=== PATIENT | female | born 1985 | race Caucasian/White ===

== ENCOUNTER → 2021-08-30 09:32 | Outpatient (CLI) | payer BC, SELFPAY ==
[2021-08-30 18:22] LABS: Add Manual Diff / Slide Review NO; Basophils Absolute Auto 0 /uL (0-100); Basophils Percent Auto 0.6 % (0-2); Eosinophils Absolute Auto 0 /uL (0-450); Eosinophils Percent Auto 0.8 % (2-4); Hematocrit 35.2 % (36-46); Hemoglobin 11.6 g/dL (12.0-16.0); Lymphocytes Absolute Auto 1400 /uL (1100-4500); Mean Corpuscular Hemoglobin 26.3 PG (26-34); Mean Corpuscular Volume 79.8 fL (80-100); Monocytes Absolute Auto 300 /uL (0-900); Monocytes Percent Auto 6.5 % (3-14); Neutrophils Absolute Auto 2900 /uL (1500-7000); Neutrophils Percent Auto 63.1 % (50-75); Platelet Count 173 X10^3/uL (150-400); Red Blood Cell Count 4.41 X10^6/uL (4.0-5.2); Red Cell Distribution Width 13.6 % (11.6-14.8); White Blood Cell Count 4.7 X10^3/uL (4.5-11.0)
[2021-08-30 18:36] LABS: Vitamin D 25 Hydroxy (D3) 41.5 ng/mL (30.0-100.0)
[2021-09-01 15:27] LABS: Calcium 8.9 mg/dL (8.7-10.2); Parathyroid Hormone, Intact 85 pg/mL (15-65)
== END ==
PROVIDERS: PCP Physician Assistant; Visit Provider Physician Assistant Medical
DX: E21.3 Hyperparathyroidism, unspecified (principal); R79.89 Other specified abnormal findings of blood chemistry
CPT/HCPCS: 82306; 82310; 83970; 85025

== ENCOUNTER → 2022-04-03 10:31 | Outpatient (CLI) | payer OTHER, SELFPAY ==
[2022-04-03 19:18] LABS: Add Manual Diff / Slide Review NO; Basophils Absolute Auto 0 /uL (0-100); Basophils Percent Auto 0.7 % (0-2); Eosinophils Absolute Auto 0 /uL (0-450); Eosinophils Percent Auto 0.4 % (2-4); Hematocrit 36.7 % (36-46); Hemoglobin 11.9 g/dL (12.0-16.0); Lymphocytes Absolute Auto 1400 /uL (1100-4500); Lymphocytes Percent Auto 20.7 % (25-40); Mean Corpuscular HGB Conc 32.4 % (30-36); Mean Corpuscular Hemoglobin 25.8 PG (26-34); Mean Corpuscular Volume 79.7 fL (80-100); Monocytes Absolute Auto 300 /uL (0-900); Monocytes Percent Auto 5.1 % (3-14); Neutrophils Absolute Auto 5000 /uL (1500-7000); Neutrophils Percent Auto 73.1 % (50-75); Platelet Count 185 X10^3/uL (150-400); Red Blood Cell Count 4.61 X10^6/uL (4.0-5.2); Red Cell Distribution Width 13.8 % (11.6-14.8); White Blood Cell Count 6.8 X10^3/uL (4.5-11.0)
[2022-04-03 19:34] LABS: Alanine Aminotransferase 32 IU/L (<35); Albumin 4.1 g/dL (3.5-5.0); Albumin Globulin Ratio 1.6 (1.0-2.8); Alkaline Phosphatase 79 U/L (38-126); Aspartate Aminotransferase 28 IU/L (14-36); BUN Creatinine Ratio 14.8 (6-22); Bilirubin Total 0.3 mg/dL (0.2-1.3); Blood Urea Nitrogen 9 mg/dL (7-17); Calcium 8.9 mg/dL (8.4-10.2); Carbon Dioxide 25 mmol/L (22-32); Chloride 103 mmol/L (98-107); Cholesterol 172 mg/dL (140-199); Estimated Glomerular Filt Rate > 60 mL/min (>60); Globulin 2.5 g/dL (1.7-4.1); Glucose 83 mg/dL (70-100); HDL Cholesterol 37 mg/dL (40-60); HEMOLYSIS < 15 (0-50); LDL Cholesterol Calculated 119 mg/dL (<100); Sodium 138 mmol/L (137-145); Total Protein 6.6 g/dL (6.3-8.2); Triglycerides 80 mg/dL (35-150)
[2022-04-03 20:02] LABS: TSH w/ Reflex to FT4 1.18 uIU/mL (0.47-4.68)
[2022-04-06 09:15] LABS: Calcium 8.9 mg/dL (8.7-10.2); Parathyroid Hormone, Intact 89 pg/mL (15-65)
== END ==
PROVIDERS: PCP Physician Assistant Medical; Visit Provider Physician Assistant Medical
DX: E03.9 Hypothyroidism, unspecified (principal); E05.90 Thyrotoxicosis, unspecified without thyrotoxic crisis or storm; E21.3 Hyperparathyroidism, unspecified; F90.9 Attention-deficit hyperactivity disorder, unspecified type; I10 Essential (primary) hypertension; R79.89 Other specified abnormal findings of blood chemistry; Z13.220 Encounter for screening for lipoid disorders
CPT/HCPCS: 80053; 80061; 82310; 83970; 84443; 85025

== ENCOUNTER → 2022-06-12 10:33 | Outpatient (CLI) | payer OTHER, SELFPAY ==
--- NOTE | 2022-06-12 10:34 | DI.MG.S_ITS ---
BILATERAL DIGITAL DIAGNOSTIC MAMMOGRAM 3D/2D: 06/12/2022 CLINICAL: Baseline exam. Right breast lump. No prior exams were available for comparison. Both breasts are heterogeneously dense, which may obscure small masses (category c / 51-75% glandular tissue). There is a linear, fibrous, possible asymmetry in the right breast at 5 o'clock middle depth. This is not seen as a discrete structure in additional views but correlates with the palpable area. No other significant masses, calcifications, or other findings are seen in either breast. IMPRESSION: INCOMPLETE: NEEDS ADDITIONAL IMAGING EVALUATION The possible asymmetry in the right breast most likely is fibroglandular tissue or fibrocystic change but remains indeterminate. Ultrasound is recommended for full evaluation of this area. This was performed immediately following this exam. Mammograms are otherwise normal. Based on the Tyrer Cuzick model (a risk assessment model) the patient's lifetime risk is 12.0% and her 10 year risk is 1.0%. According to the ACR, ACS, and NCCN guidelines, an annual breast MRI exam along with mammogram is recommended if the patient's lifetime risk is 20% or greater. This exam was interpreted at Station ID: [id number]. NOTE: For mammograms, a report in lay terms will be sent to the patient. Approximately 15% of breast malignancies will not be visualized mammographically. In the management of a palpable breast mass, a negative mammogram must not discourage biopsy of a clinically suspicious lesion. Electronically Signed By: Maranda preciado/:06/12/2022 12:46:40 ACR BI-RADS Category 0: Incomplete [id number]
--- NOTE | 2022-06-12 10:34 | DI.US.S_ITS ---
PROCEDURE: US PELVIC COMPLETE INDICATIONS: left sided pelvic pain TECHNIQUE: Real-time scanning was performed of the pelvic organs, with image documentation. Additional endovaginal scanning was necessary due to incomplete visualization of the adnexal and endometrial structures by transabdominal scanning. COMPARISON: None. FINDINGS: Uterus: Uterus is anteverted and normal in size at 7.7 x 3.7 x 4.0 cm. The myometrium is heterogeneous. The endometrium measures 2 mm combined thickness. Ovaries: The right ovary measures 3.3 x 2.0 x 2.8 cm, with a calculated ovarian volume of 9.6 cc. The left ovary measures 2.8 x 2.0 x 2.4 cm, with a calculated ovarian volume of 7.0 cc. The ovaries have a normal sonographic appearance. Less than 12 follicles can be seen in each ovary. No adnexal masses are seen. Other: No pathologic free abdominal or pelvic fluid. IMPRESSION: Unremarkable pelvic ultrasound. We strive to produce accurate, complete, and clear reports of imaging services. To assist us in improving patient care, this report was composed using standard report templates and voice recognition software. Therefore, it may contain abnormal punctuation, insertions and/or omissions. Occasional wrong-word or sound-alike substitutions may occur. Though we review the report and make efforts to correct it, we do recommend that the report be read carefully in proper context to recognize any text inaccuracies. Dictated by: Stefania Mcghee M.D. on 06/12/2022 at 11:56 Approved by: Stefania Mcghee M.D. on 06/12/2022 at 11:58
--- NOTE | 2022-06-12 10:34 | DI.US.S_ITS ---
LIMITED ULTRASOUND OF RIGHT BREAST: 06/12/2022 CLINICAL: Right breast lump. Comparison is made to exam dated: 06/12/2022 mammogram - [facility]. Real-time ultrasound of the right breast 5 o'clock region was performed. Thomas scale images of the real-time examination were reviewed. No significant abnormalities were seen sonographically in the right breast. Specifically, no finding to correspond to the patient's palpable abnormality. IMPRESSION: NEGATIVE There is no sonographic correlate to the patient's palpable abnormality and no evidence of malignancy. A 4 year screening mammogram is recommended. Findings and recommendations were conveyed to the patient at time of exam. This exam was interpreted at Station ID: [id number]. Electronically Signed By: Maranda preciado/:06/12/2022 13:05:19 letter sent: Normal Exam Ultrasound BI-RADS: 1 Negative
== END ==
PROVIDERS: PCP Physician Assistant Medical; Referring Provider Physician Assistant Medical; Visit Provider Physician Assistant Medical
DX: N63.14 Unspecified lump in the right breast, lower inner quadrant (principal); Z12.4 Encounter for screening for malignant neoplasm of cervix; Z80.49 Family history of malignant neoplasm of other genital organs; R92.2 Inconclusive mammogram
CPT/HCPCS: 76642; 76856; 77066; 93976; G0279

== ENCOUNTER → 2022-12-20 09:21 | Outpatient (CLI) | payer OTHER, SELFPAY ==
[2022-12-20 19:56] LABS: Alanine Aminotransferase 20 IU/L (<35); Albumin Globulin Ratio 1.6 (1.0-2.8); Alkaline Phosphatase 62 U/L (38-126); Aspartate Aminotransferase 24 IU/L (14-36); Bilirubin Total 0.4 mg/dL (0.2-1.3); Blood Urea Nitrogen 8 mg/dL (7-17); Calcium 9.1 mg/dL (8.4-10.2); Carbon Dioxide 24 mmol/L (22-32); Chloride 104 mmol/L (98-107); Estimated Glomerular Filt Rate > 60 mL/min (>60); Globulin 2.5 g/dL (1.7-4.1); Glucose 90 mg/dL (70-100); HEMOLYSIS < 15 (0-50); Potassium 4.3 mmol/L (3.4-5.1); Sodium 136 mmol/L (137-145); Total Protein 6.5 g/dL (6.3-8.2)
== END ==
PROVIDERS: PCP Physician Assistant Medical; Visit Provider Physician Assistant Medical
DX: E21.3 Hyperparathyroidism, unspecified (principal); F90.9 Attention-deficit hyperactivity disorder, unspecified type; R03.0 Elevated blood-pressure reading, without diagnosis of hypertension; Z79.899 Other long term (current) drug therapy
CPT/HCPCS: 80053

== ENCOUNTER → 2023-01-15 08:46 | Outpatient (CLI) | payer OTHER, SELFPAY ==
[2023-01-15 19:09] LABS: Add Manual Diff / Slide Review NO; Basophils Absolute Auto 0 /uL (0-100); Basophils Percent Auto 0.7 % (0-2); Eosinophils Absolute Auto 0 /uL (0-450); Eosinophils Percent Auto 0.3 % (2-4); Hematocrit 36.9 % (36-46); Lymphocytes Absolute Auto 1100 /uL (1100-4500); Lymphocytes Percent Auto 21.6 % (25-40); Mean Corpuscular HGB Conc 32.6 % (30-36); Mean Corpuscular Volume 79.6 fL (80-100); Monocytes Absolute Auto 300 /uL (0-900); Neutrophils Absolute Auto 3800 /uL (1500-7000); Neutrophils Percent Auto 71.4 % (50-75); Platelet Count 207 X10^3/uL (150-400); Red Blood Cell Count 4.63 X10^6/uL (4.0-5.2); Red Cell Distribution Width 13.2 % (11.6-14.8); White Blood Cell Count 5.3 X10^3/uL (4.5-11.0)
[2023-01-15 19:29] LABS: Alanine Aminotransferase 20 IU/L (<35); Albumin 4.1 g/dL (3.5-5.0); Albumin Globulin Ratio 1.6 (1.0-2.8); Alkaline Phosphatase 66 U/L (38-126); Aspartate Aminotransferase 23 IU/L (14-36); BUN Creatinine Ratio 13.9 (6-22); Bilirubin Total 0.6 mg/dL (0.2-1.3); Blood Urea Nitrogen 10 mg/dL (7-17); Calcium 9.3 mg/dL (8.4-10.2); Carbon Dioxide 24 mmol/L (22-32); Chloride 104 mmol/L (98-107); Estimated Glomerular Filt Rate > 60 mL/min (>60); Globulin 2.5 g/dL (1.7-4.1); Glucose 95 mg/dL (70-100); HEMOLYSIS < 15 (0-50); Potassium 4.2 mmol/L (3.4-5.1); Sodium 135 mmol/L (137-145); Total Protein 6.6 g/dL (6.3-8.2)
== END ==
PROVIDERS: PCP Physician Assistant Medical; Visit Provider Physician Assistant
DX: R10.9 Unspecified abdominal pain (principal); N39.0 Urinary tract infection, site not specified
CPT/HCPCS: 80053; 85025; 87086

== ENCOUNTER → 2023-02-02 12:01 | Outpatient (CLI) | payer OTHER, SELFPAY ==
--- NOTE | 2023-02-02 12:02 | DI.US.S_ITS ---
PROCEDURE: US ABDOMEN LIMITED INDICATIONS: RUQ PAIN TECHNIQUE: Real-time focused scanning was performed of the abdomen, with image documentation. COMPARISON: None. FINDINGS: The liver is normal in size and echotexture. The gallbladder contains 2 mural polyps the largest of which measures 6 x 7 mm. No calculus is seen, no biliary distention is found, the pancreas visualized appears normal but is poorly visualized overall due to bowel gas. IMPRESSION: 2 polyp are seen within the gallbladder lumen but no stones or evidence of biliary obstruction or acute cholecystitis is found. Dictated by: Gerard Richardson M.D. on 02/02/2023 at 13:52 Approved by: Gerard Richardson M.D. on 02/02/2023 at 13:54
== END ==
PROVIDERS: PCP Physician Assistant Medical; Referring Provider Physician Assistant; Visit Provider Physician Assistant
DX: K82.4 Cholesterolosis of gallbladder (principal); R10.11 Right upper quadrant pain
CPT/HCPCS: 76705

== ENCOUNTER → 2023-04-12 09:31 | Outpatient (CLI) | payer OTHER, SELFPAY | PROVIDERS: PCP Physician Assistant Medical; Visit Provider Physician Assistant Medical | DX: R05.9 Cough, unspecified (principal); J06.9 Acute upper respiratory infection, unspecified | CPT/HCPCS: 87070 ==

== ENCOUNTER → 2024-08-19 09:27 | Outpatient (CLI) | payer BC, SELFPAY ==
[2024-08-19 19:51] LABS: Add Manual Diff / Slide Review NO; Basophils Absolute Auto 0 /uL (0-100); Basophils Percent Auto 0.4 % (0-2); Eosinophils Absolute Auto 100 /uL (0-450); Eosinophils Percent Auto 1.1 % (2-4); Hematocrit 36.8 % (36-46); Hemoglobin 11.8 g/dL (12.0-16.0); Lymphocytes Absolute Auto 1600 /uL (1100-4500); Lymphocytes Percent Auto 29.6 % (25-40); Mean Corpuscular HGB Conc 32.2 % (30-36); Mean Corpuscular Hemoglobin 26.1 PG (26-34); Mean Corpuscular Volume 81.1 fL (80-100); Monocytes Absolute Auto 400 /uL (0-900); Monocytes Percent Auto 6.6 % (3-14); Neutrophils Absolute Auto 3400 /uL (1500-7000); Neutrophils Percent Auto 62.3 % (50-75); Platelet Count 197 X10^3/uL (150-400); Red Blood Cell Count 4.53 X10^6/uL (4.0-5.2); Red Cell Distribution Width 13.4 % (11.6-14.8); White Blood Cell Count 5.4 X10^3/uL (4.5-11.0)
[2024-08-19 20:00] LABS: Alanine Aminotransferase 24 IU/L (<35); Albumin 4.2 g/dL (3.5-5.0); Albumin Globulin Ratio 1.9 (1.0-2.8); Alkaline Phosphatase 75 U/L (38-126); Aspartate Aminotransferase 28 IU/L (14-36); BUN Creatinine Ratio 18.1 (6-22); Bilirubin Total 0.5 mg/dL (0.2-1.3); Blood Urea Nitrogen 13 mg/dL (7-17); Carbon Dioxide 27 mmol/L (22-32); Chloride 106 mmol/L (98-107); Cholesterol 197 mg/dL (140-199); Estimated Glomerular Filt Rate > 60 mL/min (>60); Globulin 2.2 g/dL (1.7-4.1); Glucose 94 mg/dL (70-99); HDL Cholesterol 36 mg/dL (40-60); HEMOLYSIS < 15 (0-50); LDL Cholesterol Calculated 130 mg/dL (<100); Potassium 4.2 mmol/L (3.4-5.1); Sodium 138 mmol/L (137-145); Total Protein 6.4 g/dL (6.3-8.2); Triglycerides 157 mg/dL (35-150)
[2024-08-19 20:18] LABS: Vitamin D 25 Hydroxy (D3) 33.3 ng/mL (30.0-100.0)
[2024-08-19 20:34] LABS: TSH w/ Reflex to FT4 1.03 uIU/mL (0.47-4.68)
== END ==
PROVIDERS: PCP Physician Assistant; Visit Provider Physician Assistant
DX: R79.89 Other specified abnormal findings of blood chemistry (principal); D50.9 Iron deficiency anemia, unspecified; E89.2 Postprocedural hypoparathyroidism; E21.3 Hyperparathyroidism, unspecified; E03.9 Hypothyroidism, unspecified; I10 Essential (primary) hypertension
CPT/HCPCS: 80053; 80061; 82306; 82310; 83970; 84443; 85025

== ENCOUNTER → 2024-12-09 14:18 | Outpatient (CLI) | payer BC, SELFPAY ==
[2024-12-09 18:54] LABS: Hematocrit 36.0 % (36-46); Hemoglobin 11.7 g/dL (12.0-16.0)
[2024-12-09 20:10] LABS: Hep C Virus Ab w/Reflex Quant NEGATIVE s/c (NEGATIVE)
[2024-12-11 07:13] LABS: Calcium 8.9 mg/dL (8.7-10.2); Parathyroid Hormone, Intact 104 pg/mL (15-65)
== END ==
PROVIDERS: PCP Physician Assistant; Visit Provider Physician Assistant
DX: E89.2 Postprocedural hypoparathyroidism (principal); Z11.59 Encounter for screening for other viral diseases; D64.9 Anemia, unspecified
CPT/HCPCS: 82310; 83970; 85014; 85018; 86803

== ENCOUNTER → 2025-01-05 09:26 | Outpatient (CLI) | payer BC, SELFPAY ==
--- NOTE | 2025-01-05 09:28 | DI.US.S_ITS ---
PROCEDURE: US THYROID INDICATIONS: Goiter, assess for size, hx of parathyroidectomy/partial TECHNIQUE: Real-time scanning was performed of the thyroid gland, with image documentation. COMPARISON: None. FINDINGS: Thyroid: Right lobe measures 5.6 x 1.4 x 1.7 cm. Left lobe measures 4.0 x 1.6 x 1.3 cm. Isthmus is 0.4 cm thick. Echotexture is homogeneous. IMPRESSION: No focal lesion. Dictated by: June Heller M.D. on 01/05/2025 at 16:04 Approved by: June Heller M.D. on 01/05/2025 at 16:04
--- NOTE | 2025-01-05 10:13 | DI.MRI.S_ITS ---
PROCEDURE: MR HEAD/BRAIN WO/W CON INDICATIONS: monitor R. parietal area cyst (per patient report). HAs TECHNIQUE: Noncontrast axial T1 spin echo, axial T2 fast spin echo, sagittal and axial FLAIR, coronal T2 fast spin echo, axial gradient echo, axial diffusion and ADC through the brain. After the administration of contrast, axial and coronal and sagittal 3D VIBE or T1 spin echo with fat saturation through the brain. COMPARISON: No prior relevant studies are available for review at the time of this dictation. FINDINGS: Image quality: Excellent. CSF Spaces: Basal cisterns are patent. No extra-axial fluid collections. Brain: In this patient with this given history, scrutiny is given to the right parietal region. No significant abnormality is seen at this site. At this site, there is asymmetry of the posterior horn of the lateral ventricle, larger on the right than on the left, as seen on series 8, image 12. No midline shift. No intracranial bleeds or masses. No abnormal intracranial enhancement. The brainstem appears normal. Diffusion-weighted images demonstrate no acute infarct. No chronic ischemic insults. Normal intravascular flow voids are present. Cavum vergae is noted. Skull and face: Calvarial marrow is normal in signal. Orbits appear normal. Sinuses: Sinuses and mastoids appear clear. IMPRESSION: No suspicious lesion can be seen within the right parietal region. There is asymmetry seen of the posterior horns of the lateral ventricles, right larger than left. Cavum vergae incidentally noted. Dictated by: Thierno Caal M.D. on 01/05/2025 at 12:40 Approved by: Thierno Caal M.D. on 01/05/2025 at 12:47
[2025-01-05 11:18] LABS: HEMOLYSIS < 15 (0-50); Iron 161 ug/dL (37-170)
[2025-01-05 11:30] LABS: Percent Iron Saturation 52 % (15-50); Total Iron Binding Capacity 308 ug/dL (265-497); Transferrin 259 mg/dL (206-381)
[2025-01-05 11:57] LABS: Ferritin 16 ng/mL (6-137)
[2025-01-05 12:26] LABS: Folate 11.0 ng/mL (2.76-20.0); Vitamin B12 924 pg/mL (239-931)
== END ==
PROVIDERS: PCP Physician Assistant; Referring Provider Physician Assistant; Visit Provider Physician Assistant
DX: G43.909 Migraine, unspecified, not intractable, without status migrainosus (principal); G93.0 Cerebral cysts; E89.2 Postprocedural hypoparathyroidism; E04.0 Nontoxic diffuse goiter; D50.9 Iron deficiency anemia, unspecified
CPT/HCPCS: 36415; 70553; 76536; 82607; 82728; 82746; 83540; 83550; A9579